=== PATIENT | male | born 1985 | race Caucasian/White ===

== ENCOUNTER 2023-10-29 14:42 | Emergency (ER) | payer BC ==
[~2023-10-29] VITALS: Ht 170.2 cm; Wt 77.1 kg
[2023-10-29 15:17] VITALS: O2SAT 99
== END 2023-10-29 18:52 | disposition left against medical advice (07) ==
LOC: ER 14:42
DX: R06.02 Shortness of breath (principal); Z53.21 Procedure and treatment not carried out due to patient leaving prior to being seen by health care provider
CPT/HCPCS: A4606; A4663